=== PATIENT | female | born 1995 | race African-American/Black ===

== ENCOUNTER 2016-04-16 02:11 | Emergency (ER) | payer OTHER ==
[2016-04-16] MEDS ORDERED: ACETAMINOPHEN 325 MG TABLET PO ONE (02:23)
[2016-04-16] MEDS ORDERED: DIPHENHYDRAMINE HCL 25 MG CAPSULE PO ONE (02:23)
--- NOTE | 2016-04-16 02:25 | ER Document Report ---
ED GI/ - General Chief Complaint: Vag Bleeding, +preg <12wks Stated Complaint: VAGINAL BLEEDING Time seen by provider: 02:20 Notes: Patient is a 20 -year-old female, at about 11 weeks gestation by last menstrual period, that comes emergency department for chief complaint of mid to lower abdominal pain that seems to radiate to her lower back and vaginal bleeding with a few clots that started this evening. Patient denies fever, vaginal discharge, dysuria. Patient has had initial workup by EDUCATIONAL DIRECTOR, first ultrasound scheduled for the fifth, taking vitamins, denies any other medications or any other medical history. TRAVEL OUTSIDE OF THE [place] IN LAST 30 DAYS: No - Related Data Allergies/Adverse Reactions: No Known Allergies Allergy (Unverified 04/16/16 02:23) Home Medications: Current Home Medications Pnv95/Ferrous Fumarate/FA [ Caplet] 04/16/16 [History] Past Medical History - General Information source: Patient Last Menstrual Period: JULY - Social History Smoking Status: Never Smoker Frequency of alcohol use: None Drug Abuse: None Lives with: Family Family History: Reviewed & Not Pertinent - Medical History Medical History: Negative Surgical Hx: Negative - Immunizations Hx Diphtheria, Pertussis, Tetanus Vaccination: Yes Review of Systems - Review of Systems Constitutional: No symptoms reported EENT: No symptoms reported Cardiovascular: No symptoms reported Respiratory: No symptoms reported Gastrointestinal: See HPI Genitourinary: See HPI Female Genitourinary: See HPI Musculoskeletal: No symptoms reported Skin: No symptoms reported Hematologic/Lymphatic: No symptoms reported Neurological/Psychological: No symptoms reported Physical Exam - Vital signs Vitals: Temp Pulse Resp BP Pulse Ox 98.5 F 85 16 109/63 100 04/16/16 02:19 04/16/16 02:19 04/16/16 02:19 04/16/16 02:19 04/16/16 02:19 Interpretation: Normal - General General appearance: Appears well, Alert, Anxious In distress: None - Patient nervous appearing but is alert and very well appearing otherwise - HEENT Head: Normocephalic, Atraumatic Eyes: Normal Extraocular movements intact: Yes Eyelashes: Normal Pupils: PERRL Mouth/Lips: Normal Mucous membranes: Normal Pharynx: Normal Neck: Normal - Respiratory Respiratory status: No respiratory distress Chest status: Nontender Breath sounds: Normal Chest palpation: Normal - Cardiovascular Rhythm: Regular. No: Tachycardia Heart sounds: Normal auscultation, S1 appreciated, S2 appreciated Murmur: No - Abdominal Inspection: Normal Distension: No distension Bowel sounds: Normal Tenderness: Tender - Mild and generalized tenderness of the abdomen in the upper and lower quadrants, no guarding, no rigidity or significant distention Organomegaly: No organomegaly - Back Back: Normal, Nontender. No: Tender - Extremities General upper extremity: Normal inspection, Nontender, Normal color, Normal ROM , Normal temperature General lower extremity: Normal inspection, Nontender, Normal color, Normal ROM , Normal temperature, Normal weight bearing. No: Gale's sign - Neurological Neuro grossly intact: Yes Cognition: Normal Orientation: AAOx4 [place] Coma Scale Eye Opening: Spontaneous Lily Coma Scale Verbal: Oriented [place] Coma Scale Motor: Obeys Commands Lily Coma Scale Total: 15 Speech: Normal Motor strength normal: LUE, RUE, LLE, RLE Sensory: Normal - Psychological Associated symptoms: Anxious - Skin Skin Temperature: Warm Skin Moisture: Dry Skin Color: Normal Course - Re-evaluation Re-evalutation: CBC, chemistry, urinalysis are unremarkable. Blood type is O+, RhoGAM is not indicated. After Tylenol and Benadryl patient is asymptomatic. Ultrasound showing intrauterine with 2.6 cm subchorionic bleed, likely the cause of patient's cramping and vaginal bleeding. I discussed activity precautions, follow up with EDUCATIONAL DIRECTOR, return precautions, patient and significant other state understanding and agreement. - Vital Signs Vital signs: Temp Pulse Resp BP Pulse Ox 98.1 F 87 16 104/58 L 100 04/16/16 05:12 04/16/16 05:12 04/16/16 05:12 04/16/16 05:12 04/16/16 05:12 - Laboratory Result Diagrams: 04/16/16 02:35 04/16/16 02:35 Laboratory results interpreted by me: 04/16/16 04/16/16 02:35 02:35 Hgb 11.1 L Hct 32.7 L Beta HCG, Quant 137732.00 H Discharge - Discharge Clinical Impression: Lower abdominal pain, Vaginal bleeding in patient at less than 20 weeks gestation Condition: Stable Disposition: HOME, SELF-CARE Additional Instructions: Your workup shows a subchorionic bleed, this is most likely the cause of your cramping and pain. Please observe precautions- avoid jumping, running, lifting , sexual intercourse, etc until cleared by EDUCATIONAL DIRECTOR to do so. Your blood type is O+. Please return to emergency department for any concerning symptoms.
[2016-04-16 02:49] LABS: ABSOLUTE EOSINOPHILS # (AUTO) 0.1 10^3/uL (0.0-0.6); ABSOLUTE LYMPHOCYTES (AUTO) 1.3 10^3/uL (0.5-4.7); ABSOLUTE MONOCYTES (AUTO) 0.7 10^3/uL (0.1-1.4); ABSOLUTE NEUT (AUTO) 5.8 10^3/uL (1.7-8.2); BASOPHILS % (AUTO) 0.4 % (0-2); EOSINOPHILS % (AUTO) 0.6 % (0-6); HEMATOCRIT 32.7 % (36.0-47.0); HEMOGLOBIN 11.1 g/dL (12.0-15.5); HGB HCT DIFFERENCE 0.6; LYMPHOCYTES % (AUTO) 16.7 % (13-45); MEAN CORPUSCULAR HGB CONC 33.9 g/dL (32.0-36.0); MEAN CORPUSCULAR VOLUME 85 fl (80-97); MONOCYTES % (AUTO) 8.5 % (3-13); RED BLOOD COUNT 3.83 10^6/uL (3.72-5.28); RED CELL DISTRIBUTION WIDTH 12.1 % (11.5-14.0); SEGMENTED NEUTROPHILS % (AUTO) 73.8 % (42-78); WHITE BLOOD COUNT 7.9 10^3/uL (4.0-10.5)
[2016-04-16 02:54] LABS: AMORPHOUS SEDIMENT,URINE TRACE /HPF; APPEARANCE,URINE CLEAR; BILIRUBIN,URINE NEGATIVE (NEGATIVE); GLUCOSE, URINE NEGATIVE (NEGATIVE); KETONES,URINE NEGATIVE (NEGATIVE); LEUKOCYTE ESTERASE,URINE NEGATIVE (NEGATIVE); NITRITE,URINE NEGATIVE (NEGATIVE); PROTEIN,URINE NEGATIVE (NEGATIVE); URINE SPECIFIC GRAVITY 1.025; UROBILINOGEN,URINE NEGATIVE mg/dL (<2.0)
[2016-04-16 03:49] LABS: ALANINE AMINOTRANSFERASE 23 U/L (9-52); ALBUMIN 4.3 g/dL (3.5-5.0); ALKALINE PHOSPHATASE 75 U/L (38-126); ANION GAP 12 (5-19); ASPARTATE AMINO TRANSFERASE 20 U/L (14-36); BILIRUBIN,TOTAL 0.3 mg/dL (0.2-1.3); BLOOD UREA NITROGEN 13 mg/dL (7-20); CALCIUM 9.3 mg/dL (8.4-10.2); CARBON DIOXIDE 23 mmol/L (22-30); CHLORIDE 104 mmol/L (98-107); CREATININE RESULT 0.63 mg/dL (0.52-1.25); GLUCOSE 86 mg/dL (75-110); POTASSIUM 3.7 mmol/L (3.6-5.0); SODIUM 139.1 mmol/L (137-145); TOTAL PROTEIN 7.1 g/dL (6.3-8.2)
[2016-04-16 05:15] VITALS: BP 104/58
== END 2016-04-16 05:15 | disposition home or self-care (01) ==
LOC: ER 02:11
DX: O20.8 Other hemorrhage in early pregnancy (principal); O26.891 Other specified pregnancy related conditions, first trimester; R10.30 Lower abdominal pain, unspecified; Z3A.00 Weeks of gestation of pregnancy not specified; Z79.899 Other long term (current) drug therapy
CPT/HCPCS: 36415; 76817; 80053; 81001; 84702; 85025; 86900; 86901; 93976; 99284

== ENCOUNTER 2018-09-01 09:26 | Emergency (ER) | payer OTHER ==
[2018-09-01] MEDS ORDERED: DEXAMETHASONE 4 MG TABLET PO ONE (10:22)
[2018-09-01] MEDS ORDERED: ACETAMINOPHEN 325 MG TABLET PO ONE (10:22)
--- NOTE | 2018-09-01 10:23 | ER Document Report ---
HPI - HPI Patient complains to provider of: Sore throat Time Seen by Provider: 09/01/18 10:07 Onset: Last week Onset/Duration: Persistent Quality of pain: Achy Pain Level: 2 Context: Patient presents complaining of sore throat for the past week. No fever. Child is here with upper respiratory symptoms as well. Associated Symptoms: Sore throat. denies: Nonproductive cough, Earache, Fever, Nausea Exacerbated by: Denies Relieved by: Denies Similar symptoms previously: Yes Recently seen / treated by doctor: No - ROS ROS below otherwise negative: Yes Systems Reviewed and Negative: Yes All other systems reviewed and negative - CONSTITUTIONAL Constitutional: DENIES: Fever - EENT EENT: REPORTS: Sore Throat, Ear Pain. DENIES: Congestion - NEURO Neurology: DENIES: Headache - RESPIRATORY Respiratory: DENIES: Coughing - GASTROINTESTINAL Gastrointestinal: DENIES: Nausea, Patient vomiting - REPRODUCTIVE Reproductive: DENIES: : - DERM Skin Color: Normal Skin Problems: None Past Medical History - General Information source: Patient - Social History Smoking Status: Never Smoker Frequency of alcohol use: None Drug Abuse: None Occupation: [employer] Lives with: Family Family History: Reviewed & Not Pertinent - Medical History Medical History: Negative Surgical Hx: Negative - Immunizations Immunizations up to date: Yes Hx Diphtheria, Pertussis, Tetanus Vaccination: Yes Vertical Provider Document - CONSTITUTIONAL Agree With Documented VS: Yes Exam Limitations: No Limitations General Appearance: WD/WN, No Apparent Distress - INFECTION CONTROL TRAVEL OUTSIDE OF THE [place] IN LAST 30 DAYS: No - HEENT HEENT: Atraumatic, Normocephalic, Pharyngeal Tenderness, Pharyngeal Erythema. negative: Pharyngeal Exudate, Tympanic Membrane Red, Tympanic Membrane Bulging - NECK Neck: Normal Inspection, Supple. negative: Lymphadenopathy-Left, Lymphadenopathy-Right - RESPIRATORY Respiratory: Breath Sounds Normal, No Respiratory Distress - CARDIOVASCULAR Cardiovascular: Regular Rate, Regular Rhythm - BACK Back: Normal Inspection - MUSCULOSKELETAL/EXTREMETIES Musculoskeletal/Extremeties: MAEW - NEURO Level of Consciousness: Awake, Alert, Appropriate Motor/Sensory: No Motor Deficit - DERM Integumentary: Warm, Dry, No Rash Course - Re-evaluation Re-evalutation: 09/01/18 10:57 Patient's rapid strep test is negative this time. No concern for peritonsillar abscess. No cervical lymphadenopathy. Patient otherwise stable for discharge at this time. - Vital Signs Vital signs: Temp Pulse Resp BP Pulse Ox 98.7 F 86 16 125/68 98 09/01/18 09:45 09/01/18 09:45 09/01/18 09:45 09/01/18 09:45 09/01/18 09:45 - Laboratory Laboratory results interpreted by me: 09/01/18 10:57 Labs- Entire Visit 09/01/18 10:22 Group A Strep Rapid NEGATIVE Discharge - Discharge Clinical Impression: Sore throat (viral) Condition: Stable Disposition: HOME, SELF-CARE Instructions: Acetaminophen, Sore Throat ([facility]) Additional Instructions: Return immediately for any new or worsening symptoms Followup with your primary care provider, call tomorrow to make a followup appointment Throat culture is pending, we will call if you need any different treatment Prescriptions: Naproxen [Naprosyn 250 Nmg Tablet] 1 tab PO BID #14 tablet Referrals: [facility] [Provider Group] - Follow up as needed
[2018-09-01 11:42] VITALS: BP 111/62
== END 2018-09-01 11:44 | disposition home or self-care (01) ==
LOC: ER 09:26
DX: J02.8 Acute pharyngitis due to other specified organisms (principal); B97.89 Other viral agents as the cause of diseases classified elsewhere; H92.09 Otalgia, unspecified ear
CPT/HCPCS: 87070; 87880; 99283

== ENCOUNTER 2018-10-11 21:08 | Emergency (ER) | payer OTHER ==
[2018-10-12 00:57] LABS: APPEARANCE,URINE CLOUDY; BILIRUBIN,URINE NEGATIVE (NEGATIVE); COLOR,URINE YELLOW; GLUCOSE, URINE NEGATIVE (NEGATIVE); KETONES,URINE NEGATIVE (NEGATIVE); LEUKOCYTE ESTERASE,URINE LARGE (NEGATIVE); NITRITE,URINE NEGATIVE (NEGATIVE); PROTEIN,URINE 30 mg/dL (NEGATIVE); URINE SPECIFIC GRAVITY 1.034
[2018-10-12 01:16] LABS: RBCS (WET MOUNT) FEW RBCS SEEN; T.VAGINALIS (WET MOUNT) NO TRICHOMONAS SEEN; WBCS (WET MOUNT) FEW WBCS SEEN; YEAST (WET MOUNT) NO YEAST SEEN
[2018-10-12] MEDS ORDERED: CEFTRIAXONE INJ 250 MG VIAL IM ONE (01:20)
[2018-10-12] MEDS ORDERED: AZITHROMYCIN 250 MG TABLET PO ONE (01:20)
--- NOTE | 2018-10-12 01:26 | ER Document Report ---
ED General - General Chief Complaint: Vaginal Itching Stated Complaint: VAGINAL ITCHING Time Seen by Provider: 10/12/18 00:34 Mode of Arrival: Ambulatory Information source: Patient TRAVEL OUTSIDE OF THE [place] IN LAST 30 DAYS: No - HPI Patient complains to provider of: Vaginal discharge, itching, burning Onset: Other - 4 days Onset/Duration: Gradual Severity: Severe Pain Level: 5 Associated symptoms: None Exacerbated by: Denies Relieved by: Denies Similar symptoms previously: No Recently seen / treated by doctor: No Notes: 22-year-old -Turk[place] female coming in with 4 days of vaginal discharge, itching, burning, and soreness. - Related Data Allergies/Adverse Reactions: No Known Allergies Allergy (Verified 09/01/18 09:29) Past Medical History - General Information source: Patient - Social History Smoking Status: Never Smoker Drug Abuse: None Family History: Reviewed & Not Pertinent Renal/ Medical History: Denies: Hx Peritoneal Dialysis - Immunizations Immunizations up to date: Yes Hx Diphtheria, Pertussis, Tetanus Vaccination: Yes Review of Systems - Review of Systems Notes: Constitutional: No fevers. No chills. EENT: No eye redness. No eye pain. No ear pain. No sore throat. Cardiovascular: No chest pain. No palpitations. Respiratory: No cough. No shortness of breath. No respiratory distress. Gastrointestinal: No abdominal pain. No nausea, vomiting, or diarrhea. Genitourinary: Positive for itching, burning, vaginal discharge Musculoskeletal: Atraumatic. No swelling. No deformities. Skin: No rash or lesions. Lymphatic: No swollen lymph nodes. Neurologic: No headache. No syncope. Psychiatric: No suicidal or homicidal ideation. Physical Exam - Vital signs Vitals: Temp Pulse Resp BP Pulse Ox 98.4 F 81 20 125/67 98 10/11/18 21:15 10/11/18 21:15 10/11/18 21:15 10/11/18 21:15 10/11/18 21:15 - Notes Notes: General: Well-developed, well-nourished. In no acute distress. Non-toxic appearing. Cardiac: Well-perfused. Regular rate and rhythm. No murmurs, rubs, or gallops. Pulmonary: No respiratory distress. No cyanosis. Bilateral lung fiels are clear to auscultation. Abdominal: Non-distended. Non-rigid. Bowels sounds are present in all four quadrants. No guarding or rebound. HEENT: Head is atraumatic. Conjunctivae not reddened. No tearing. PERRL. EOMI. Orbits atraumatic. No periorbital swelling or erythema. Oropharynx is without erythema, swelling, or exudates. Neck: Supple. No adenopathy. No meningismus. Dermatologic: Warm with good turgor. No rash. Atraumatic. Chest: Atraumatic. No chest wall tenderness to palpation. Musculoskeletal: Moves all extremities well. No range of motion deficits. no muscular or joint tenderness. No paraspinal muscle tenderness. no midline spinal tenderness or step-off. Genitourinary: Chaperoned by RN. External genitalia normal. Speculum exam reveals copious curd-like odorless white vaginal discharge. Cervix closed. No bleeding. No cervical motion tenderness. No adnexal masses. Neurologic: No gross neurologic deficits. Psychiatric: Normal mood. Course - Re-evaluation Re-evalutation: 10/12/18 01:24 GC chlamydia pending but will go ahead and empirically treat as requested by patient. BV present. We will treat that with some Flagyl. Also due to the appearance of the white discharge I will go ahead and treat with Diflucan after everything else is completed. - Vital Signs Vital signs: Temp Pulse Resp BP Pulse Ox 98.4 F 81 20 125/67 98 10/11/18 21:15 10/11/18 21:15 10/11/18 21:15 10/11/18 21:15 10/11/18 21:15 - Laboratory Laboratory results interpreted by me: 10/12/18 00:25 Urine Protein 30 H Urine Urobilinogen 2.0 H Ur Leukocyte Esterase LARGE H Urine Ascorbic Acid 40 H Discharge - Discharge Clinical Impression: Candidiasis, Bacterial vaginosis, Vaginal irritation Condition: Good Disposition: HOME, SELF-CARE Instructions: Vaginosis, Bacterial ([facility]) Additional Instructions: We are treating you for gonorrhea and chlamydia even though the test results have not come back. We are also going to give you a prescription for antibiotics for condition called bacterial vaginosis which we already discussed. I will also give you one prescription for Diflucan which you can take after you have completed all of your other antibiotics. Prescriptions: Fluconazole [Diflucan] 150 mg PO ONCE PRN #1 tablet PRN Reason: Metronidazole [Flagyl 500 mg Tablet] 500 mg PO BID #14 tablet Referrals: [facility] [NO LOCAL MD] - Follow up as needed
[2018-10-12] MEDS ORDERED: LIDOCAINE 1% INJ (10 MG/ML) 10 ML MDV ONE (01:53)
[2018-10-12 02:07] VITALS: BP 128/77
[2018-10-12 02:44] LABS: CHLAM PCR NOT DETECTED (NOT DETECT)
== END 2018-10-12 02:07 | disposition home or self-care (01) ==
LOC: ER 21:08
DX: N76.0 Acute vaginitis (principal); B96.89 Other specified bacterial agents as the cause of diseases classified elsewhere; B37.3 Candidiasis of vulva and vagina; L29.2 Pruritus vulvae
CPT/HCPCS: 99283; 96372; 87210; 81025; 81001; 87491; 87591; J0696

== ENCOUNTER 2019-05-13 13:24 | Emergency (ER) | payer OTHER ==
--- NOTE | 2019-05-13 14:37 | ER Document Report ---
ED Medical Screen (RME) - General Chief Complaint: Vag Bleeding, +preg <12wks Stated Complaint: VAGINAL BLEEDING/CRAMPING Time Seen by Provider: 05/13/19 14:34 Mode of Arrival: Ambulatory Information source: Patient Notes: 23-year-old female presented to ED for vaginal bleeding during . She states she thinks she is having a miscarriage. She states she has had multiple home test and then went to the [facility] and they told her she was . She states she did have ultrasound and they told her they thought they might see a sac. She states that 8:00 it was very lightly bleeding then she started getting cramping and now she is following bleeding. With clots and everything. I have greeted and performed a rapid initial assessment of this patient. A comprehensive ED assessment and evaluation of the patient, analysis of test results and completion of medical decision making process will be conducted by an additional ED providers. TRAVEL OUTSIDE OF THE [place] IN LAST 30 DAYS: No - HPI Onset: This morning Onset/Duration: Gradual Quality of pain: Cramping Severity: Moderate Pain Level: 3 Associated Symptoms: Vaginal bleeding - Related Data Allergies/Adverse Reactions: No Known Allergies Allergy (Verified 05/13/19 14:34) Past Medical History Renal/ Medical History: Denies: Hx Peritoneal Dialysis - Immunizations Immunizations up to date: Yes Hx Diphtheria, Pertussis, Tetanus Vaccination: Yes Physical Exam - Vital signs Vitals: Temp Pulse Resp BP Pulse Ox 99.1 F 81 20 130/56 H 100 05/13/19 14:12 05/13/19 14:12 05/13/19 14:12 05/13/19 14:12 05/13/19 14:12 Course - Vital Signs Vital signs: Temp Pulse Resp BP Pulse Ox 99.1 F 81 20 130/56 H 100 05/13/19 14:12 05/13/19 14:12 05/13/19 14:12 05/13/19 14:12 05/13/19 14:12
[2019-05-13 16:15] LABS: ABSOLUTE BASOPHILS # (AUTO) 0.1 10^3/uL (0.0-0.2); ABSOLUTE EOSINOPHILS # (AUTO) 0.1 10^3/uL (0.0-0.6); ABSOLUTE MONOCYTES (AUTO) 0.9 10^3/uL (0.1-1.4); ABSOLUTE NEUT (AUTO) 5.4 10^3/uL (1.7-8.2); BASOPHILS % (AUTO) 0.9 % (0-2); EOSINOPHILS % (AUTO) 1.3 % (0-6); HEMOGLOBIN 12.6 g/dL (12.0-15.5); LYMPHOCYTES % (AUTO) 23.8 % (13-45); MEAN CORPUSCULAR HEMOGLOBIN 28.6 pg (27.0-33.4); MEAN CORPUSCULAR HGB CONC 33.2 g/dL (32.0-36.0); MEAN CORPUSCULAR VOLUME 86 fl (80-97); MONOCYTES % (AUTO) 10.6 % (3-13); PLATELET COUNT 242 10^3/uL (150-450); RED CELL DISTRIBUTION WIDTH 13.6 % (11.5-14.0); SEGMENTED NEUTROPHILS % (AUTO) 63.4 % (42-78); TOTAL CELLS COUNTED % (AUTO) 100 %; WHITE BLOOD COUNT 8.5 10^3/uL (4.0-10.5)
[2019-05-13 16:20] LABS: APPEARANCE,URINE CLOUDY; BILIRUBIN,URINE NEGATIVE (NEGATIVE); COLOR,URINE YELLOW; GLUCOSE, URINE NEGATIVE (NEGATIVE); KETONES,URINE NEGATIVE (NEGATIVE); PROTEIN,URINE 100 mg/dL (NEGATIVE); URINE SPECIFIC GRAVITY 1.027; UROBILINOGEN,URINE NEGATIVE mg/dL (<2.0)
[2019-05-13 16:27] LABS: ALBUMIN 4.5 g/dL (3.5-5.0); ALKALINE PHOSPHATASE 79 U/L (38-126); ANION GAP 10 (5-19); ASPARTATE AMINO TRANSFERASE 28 U/L (14-36); BILIRUBIN,DIRECT 0.2 mg/dL (0.0-0.4); BILIRUBIN,TOTAL 0.4 mg/dL (0.2-1.3); BLOOD UREA NITROGEN 12 mg/dL (7-20); CALCIUM 9.8 mg/dL (8.4-10.2); CARBON DIOXIDE 27 mmol/L (22-30); CHLORIDE 102 mmol/L (98-107); GLUCOSE 82 mg/dL (75-110); POTASSIUM 3.8 mmol/L (3.6-5.0); TOTAL PROTEIN 8.2 g/dL (6.3-8.2)
--- NOTE | 2019-05-13 17:16 | RADIOLOGY REPORT (SQ) ---
EXAM DESCRIPTION: U/S OB TRANSVAGINAL W/O DOP COMPLETED DATE/TIME: 05/13/2019 4:49 pm REASON FOR STUDY: Vaginal bleeding early COMPARISON: None. TECHNIQUE: Endovaginal static and realtime grayscale images acquired of the pelvis. Additional selec roseanna spectral and color Doppler images recorded. All images stored on PACs. CLINICAL AGE: Unsure BHC LIMITATIONS: None. FINDINGS: UTERUS: No visualized intrauterine . Uterus measures 7 x 4 x 6 cm in size Endometrial stripe 12 mm in thickness. RIGHT ADNEXA: Normal ovary with normal vascular flow. Right ovary 3.3 x 2.9 x 2.6 cm in size. No ad nexal free fluid.No adnexal masses. LEFT ADNEXA: Normal ovary with normal vascular flow. Left ovary 3.6 x 2.5 x 1.5 cm in size. No adne xal free fluid.No adnexal masses. FREE FLUID: None. OTHER: Report called to the patient's practitioner in the emergency room 1700 hours 05/13/2019. IMPRESSION: NO VISUALIZED INTRA- OR EXTRAUTERINE . bHCG LEVEL TOO LOW TO EXPECT VISUALIZATION OF . ECTOPIC CANNOT BE EXCLUDED. FOLLOW-UP ULTRASOUND AND SERIAL BHCG LEVELS STRONGLY RECOMMENDED TO ACCURATELY ASSESS STATU S. TECHNICAL DOCUMENTATION: JOB ID: [id number]- All Rights Reserved Reading location - IP/workstation name: [email or web address]
--- NOTE | 2019-05-13 18:13 | ER Document Report ---
ED General - General Chief Complaint: Vag Bleeding, +preg <12wks Stated Complaint: VAGINAL BLEEDING/CRAMPING Time Seen by Provider: 05/13/19 14:34 Primary Care Provider: CEASAR GARCIA MD [ACTIVE STAFF] - Follow up in 3-5 days Mode of Arrival: Ambulatory TRAVEL OUTSIDE OF THE [place] IN LAST 30 DAYS: No - HPI Notes: 23-year-old female to the emergency department with complaints of vaginal bleeding and lower abdominal cramping that began today. She states she is . She states that her last known menstrual period was in February but she is not exactly sure of when she may have gotten . She states that she saw [facility] yesterday and they brielle a hormone her on her. They thought they maybe saw gestational sac on ultrasound but it could not be confirmed. She states this morning is when she began to bleed. She states that she has not gone through more than 1 pad. She states that she is never had a miscarriage before. She is a . She denies any chest pain, shortness of breath, nausea, vomiting, diarrhea, headaches, urinary symptoms. - Related Data Allergies/Adverse Reactions: No Known Allergies Allergy (Verified 05/13/19 14:34) Past Medical History - General Information source: Patient - Social History Smoking Status: Never Smoker Family History: Reviewed & Not Pertinent Patient has suicidal ideation: No Patient has homicidal ideation: No Renal/ Medical History: Denies: Hx Peritoneal Dialysis - Immunizations Immunizations up to date: Yes Hx Diphtheria, Pertussis, Tetanus Vaccination: Yes Review of Systems - Review of Systems Constitutional: denies: Chills, Fever EENT: No symptoms reported Cardiovascular: denies: Chest pain, Palpitations, Dyspnea, Syncope, Dizziness, Lightheaded Respiratory: denies: Cough, Short of breath Gastrointestinal: Abdominal pain. denies: Diarrhea, Nausea, Vomiting Female Genitourinary: See HPI, , Vaginal bleeding Musculoskeletal: No symptoms reported Skin: No symptoms reported Hematologic/Lymphatic: No symptoms reported Neurological/Psychological: No symptoms reported -: Yes All other systems reviewed and negative Physical Exam - Vital signs Vitals: Temp Pulse Resp BP Pulse Ox 99.1 F 81 20 130/56 H 100 05/13/19 14:12 05/13/19 14:12 05/13/19 14:12 05/13/19 14:12 05/13/19 14:12 Interpretation: Normal - General General appearance: Appears well, Alert In distress: None - HEENT Head: Normocephalic, Atraumatic Eyes: Normal Pupils: PERRL - Respiratory Respiratory status: No respiratory distress Chest status: Nontender Breath sounds: No: Rales, Rhonchi, Wheezing Chest palpation: Normal - Cardiovascular Rhythm: Regular Heart sounds: Normal auscultation Murmur: No - Abdominal Inspection: Normal Distension: No distension Bowel sounds: Normal Tenderness: No: Tender, McBurney's point, Jalloh's sign, Guarding, Rebound Organomegaly: No organomegaly - Back Back: Normal, Nontender. No: CVA tenderness - Neurological Neuro grossly intact: Yes Cognition: Normal Orientation: AAOx4 [place] Coma Scale Eye Opening: Spontaneous [place] Coma Scale Verbal: Oriented [place] Coma Scale Motor: Obeys Commands [place] Coma Scale Total: 15 Speech: Normal Motor strength normal: LUE, RUE, LLE, RLE Sensory: Normal - Psychological Associated symptoms: Normal affect, Normal mood - Skin Skin Temperature: Warm Skin Moisture: Dry Skin Color: Normal Course - Re-evaluation Re-evalutation: 05/13/19 19:34 Noted ultrasound reading. No gestational sac seen. Patient has a beta quant level of 432. There is no comparison. This is likely a threatened miscarriage but ectopic cannot be ruled out. She actually already has in place really good trending. She has a plan to go on for repeat of her beta quant and on Sunday for repeat of beta quant. I have encouraged pelvic rest. I encouraged her to return if worsening bleeding, pain, passing out, chest pain, shortness of breath. She agrees with the plan. She is O+ Impression: Threatened miscarriage vaginal bleeding in early . Gave strict instructions for patient to follow-up for beta quant trending and also gave strict return precautions. [facility] is established with [facility]. She agrees with the plan. - Vital Signs Vital signs: Temp Pulse Resp BP Pulse Ox 98.9 F 80 16 123/74 100 05/13/19 18:21 05/13/19 18:21 05/13/19 18:21 05/13/19 18:21 05/13/19 18:21 - Laboratory Result Diagrams: 05/13/19 15:40 05/13/19 15:40 Laboratory results interpreted by me: 05/13/19 05/13/19 15:40 15:40 Beta HCG, Quant 436.88 H Urine Protein 100 H Urine Blood LARGE H Leukocyte Esterase Rfl SMALL H - Diagnostic Test Radiology reviewed: Image reviewed, Reports reviewed Discharge - Discharge Clinical Impression: Vaginal bleeding during , Threatened miscarriage in early Condition: Stable Disposition: HOME, SELF-CARE Instructions: Threatened Miscarriage ([facility]) Additional Instructions: Follow-up as scheduled for trending of your hormone. Today your hormone was 436. Pelvic rest for nowno sex, douching, tampons. Return immediately if worsening abdominal pain, chest pain, shortness of breath, passing out, bleeding through more than 3 pads an hour. Referrals: CEASAR GARCIA MD [ACTIVE STAFF] - Follow up in 3-5 days
[2019-05-13 18:23] VITALS: BP 123/74
== END 2019-05-13 18:21 | disposition home or self-care (01) ==
LOC: ER 13:24
DX: O20.0 Threatened abortion (principal); O26.891 Other specified pregnancy related conditions, first trimester; R10.30 Lower abdominal pain, unspecified; Z3A.00 Weeks of gestation of pregnancy not specified
CPT/HCPCS: 36415; 76817; 80053; 81001; 84702; 85025; 86900; 86901; 99284